=== PATIENT | female | born 1950 | race Caucasian/White ===

== ENCOUNTER → 2023-10-23 | Outpatient (CLI) | payer MEDICARE, SELFPAY ==
[2023-10-23 13:27] LABS: RBC /Synovial Fluid 0.088 10^6/uL (0); Synovial Fld Mononuclear WBC # 0.276 10^3/ul; Synovial Fld Mononuclear WBC % 77.5 %; Synovial Fld Polynuclear WBC % 22.5 %
[2023-10-23 15:45] LABS: Lymph 39 %; Monocyte /Synovial Fluid 50 %; Neutrophil 9 % (0-25); Other Cell /Synovial Fluid 2 %
[2023-10-23 15:47] LABS: AUTO B FLUID DILUENT BKGD CT WBC <0.1 RBC <0.01 (W<.1,R<.01); CRYSTALS, BODY FLUID NO CRYSTALS SEEN; Source- Body Fluid SYNOVIAL
[2023-10-23 15:48] LABS: Appearance /Synovial Fluid Cloudy (CLEAR); Color / Synovial Fluid Red (Pale Yellow); Pathologist Review Will follow; Source / Synovial Fluid RIGHT HIP
[2023-10-24 15:48] LABS: Pathologist Comment Reviewed
== END | disposition home or self-care (01) ==
LOC: LAB 12:18 → LABSPEC 12:20
PROVIDERS: Referring Provider Internal Medicine Rheumatology; Visit Provider Internal Medicine Rheumatology
DX: M06.051 Rheumatoid arthritis without rheumatoid factor, right hip (principal); M19.041 Primary osteoarthritis, right hand; M18.0 Bilateral primary osteoarthritis of first carpometacarpal joints; M25.551 Pain in right hip; Z79.899 Other long term (current) drug therapy
CPT/HCPCS: 87070; 87075; 87205; 89050; 89051; 89060